=== PATIENT | male | born 1975 | race African-American/Black ===

== ENCOUNTER 2016-06-30 18:07 | Inpatient (IN) | payer BC, OTHER ==
[~2016-06-30] VITALS: Ht 177.8 cm; Wt 88.8 kg
[2016-06-30 18:28] LABS: Urine RBC None Seen /hpf (0 - 3)
[2016-06-30 18:55] LABS: Basophils # (auto) 0 uL; Basophils % (auto) 0.4 % (0.0-2.0); Eosinophils # (auto) 0.2 uL; Eosinophils % (auto) 2.4 % (0.0-7.0); Hematocrit 46.7 % (41.0-53.0); Hemoglobin 14.8 g/dL (13.5-17.5); Lymphocytes # (auto) 1.2 uL; Mean Corpuscular Hgb Conc. 31.6 g/dL (32.0-36.0); Mean Corpuscular Volume 91.7 fL (80.0-100.0); Mean Platelet Volume 8.8 fL (7.4-10.4); Monocytes # (auto) 0.6 uL; Monocytes % (auto) 6.7 % (0.0-12.0); Neutrophils # (auto) 6.6 uL; Neutrophils % (auto) 76.5 % (37.0-80.0); Platelet Count (auto) 216 10^3/uL (140-450); White Blood Cell 8.6 10^3/uL (4.4-10.8)
[2016-06-30 19:03] LABS: Urine Bilirubin Negative (Negative); Urine Blood Negative /uL (Negative); Urine Color Yellow (Yellow); Urine Glucose 1+ mg/dL (Normal); Urine Ketone Negative (Negative); Urine Nitrite Negative (Negative); Urine Squamous Epithelial Cell FEW /hpf (<5); Urine Urobilinogen Normal (Negative); Urine pH 6.5 (5.0-8.0)
[2016-06-30 19:15] LABS: Albumin 4.5 g/dL (3.4-5.0); BUN/Creatinine Ratio 6.1; Calcium 9.3 mg/dL (8.5-10.1); Potassium 3.7 mmol/L (3.5-5.1)
[2016-06-30 19:25] LABS: Bilirubin, Total 0.7 mg/dL (0.2-1.0)
[2016-06-30] MEDS ORDERED: SODIUM CHLORIDE 0.9% 500 ML IVB ONE (19:38)
[2016-06-30] MEDS ORDERED: HYDROmorphone HCL 2 MG/ML VL IV ONE (19:45)
[2016-06-30] MEDS ORDERED: ONDANSETRON HCL 4 MG/2 ML VIAL IV ONE (19:45)
[2016-06-30] MEDS ORDERED: cefTRIAXone 1GM/50ML D5W 50 ML IV ONE (20:30)
[2016-06-30 20:44] LABS: Amylase 67 U/L (25-115)
[2016-06-30] MEDS ORDERED: SODIUM CHLORIDE 0.9% 1,000 ML IV ONE (21:15)
[2016-06-30] MEDS ORDERED: ONDANSETRON HCL 4 MG/2 ML VIAL IV PRN (21:15)
[2016-06-30] MEDS: metroNIDAZOLE 500MG/100ML 100 ML IV SCH (21:35)
[2016-06-30 21:54] LABS: INR 1.11 (0.9-1.15); Prothrombin Time 11.4 sec (9.37-12.3)
[2016-06-30 22:05] VITALS: BP 156/106
[2016-07-01] VITALS (7 sets, daily range): BP systolic 130–154; BP diastolic 90–100
[2016-07-01] MEDS: HYDROmorphone HCL 2 MG/ML VL IV PRN ×5 (00:07→21:54)
[2016-07-01] MEDS: FAMOTIDINE (10MG/ML) 2ML VL IV SCH ×3 (00:08→21:38)
[2016-07-01 06:00] LABS: Basophils # (auto) 0 uL; Basophils % (auto) 0.2 % (0.0-2.0); Eosinophils # (auto) 0.2 uL; Eosinophils % (auto) 2.1 % (0.0-7.0); Hematocrit 42.5 % (41.0-53.0); Hemoglobin 13.2 g/dL (13.5-17.5); Lymphocytes # (auto) 1.2 uL; Lymphocytes % (auto) 14.5 % (10.0-50.0); Mean Corpuscular Hemoglobin 28.8 pg (28.0-32.0); Mean Corpuscular Hgb Conc. 31.1 g/dL (32.0-36.0); Mean Corpuscular Volume 92.3 fL (80.0-100.0); Monocytes # (auto) 0.6 uL; Monocytes % (auto) 7.6 % (0.0-12.0); Neutrophils % (auto) 75.6 % (37.0-80.0); Platelet Count (auto) 191 10^3/uL (140-450); Red Cell Distribution Width 14.1 % (11.6-16.0)
[2016-07-01] MEDS: metroNIDAZOLE 500MG/100ML 100 ML IV SCH ×3 (06:00→21:37)
[2016-07-01 06:19] LABS: Albumin 3.9 g/dL (3.4-5.0); BUN/Creatinine Ratio 8.2; Calcium 9.1 mg/dL (8.5-10.1)
[2016-07-01 06:22] LABS: Bilirubin, Total 0.9 mg/dL (0.2-1.0)
[2016-07-01] MEDS ORDERED: BUPIVACAINE W/ EPINEPH 0.25% INJ 50ML MDV ONE (07:03)
[2016-07-01] MEDS ORDERED: BUPIVACAINE 0.25% INJ 50ML VIAL ONE (07:03)
[2016-07-01] MEDS ORDERED: ceFAZolin 1GM VL ONE (07:03)
[2016-07-01] MEDS ORDERED: MEPERIDINE HCL (50 MG/ML) 1 ML VIAL ONE (07:18)
[2016-07-01] MEDS ORDERED: fentaNYL CITRATE 100 MCG/2 ML VL ONE (07:18)
[2016-07-01] MEDS ORDERED: MIDAZOLAM HCL 1MG/1ML-2 ML VIAL ONE (07:18)
[2016-07-01] MEDS ORDERED: PROPOFOL 10 MG/ML 20 ML IV ONE (07:28)
[2016-07-01] MEDS ORDERED: DEXAMETHASONE SOD PHOS 10MG/1ML VIAL INJ ONE (07:28)
[2016-07-01] MEDS ORDERED: ROCURONIUM 10MG/ML 10ML VIAL IV ONE (07:41)
[2016-07-01] MEDS ORDERED: ONDANSETRON HCL 4 MG/2 ML VIAL IV ONE (08:00)
[2016-07-01] MEDS ORDERED: KETOROLAC TROMETH 30 MG/ML 1ML VIAL IV ONE (08:00)
[2016-07-01] MEDS ORDERED: MORPHINE SULF INJ 2 MG/ML SYRINGE 1ML IV PRN (08:00)
[2016-07-01] MEDS ORDERED: LABETALOL HCL 5 MG/ML 4ML SYRINGE IV PRN (08:00)
[2016-07-01] MEDS ORDERED: MIDAZOLAM HCL 1MG/1ML-2 ML VIAL IV PRN (08:00)
[2016-07-01] MEDS ORDERED: hydrALAZINE HCL 20 MG/ML VL IV PRN (08:00)
[2016-07-01] MEDS ORDERED: GLYCOPYRROLATE 0.2 MG/ML 1ML VIAL ONE (08:11)
[2016-07-01] MEDS ORDERED: NEOSTIGMINE 1 MG/ML INJ (10mg/10ML VIAL) ONE (08:11)
[2016-07-01] MEDS ORDERED: KETOROLAC TROMETH 30 MG/ML 1ML VIAL ONE (08:18)
[2016-07-01] MEDS: cefTRIAXone 1GM/50ML D5W 50 ML IV SCH (10:26)
[2016-07-01] MEDS: SODIUM CHLORIDE 0.9% 1,000 ML IV SCH (14:40)
[2016-07-02] MEDS: SODIUM CHLORIDE 0.9% 1,000 ML IV SCH (03:25)
[2016-07-02 05:00] VITALS: BP 146/97
[2016-07-02] MEDS: metroNIDAZOLE 500MG/100ML 100 ML IV SCH ×2 (06:18→14:00)
[2016-07-02 06:32] LABS: Basophils # (auto) 0 uL; Basophils % (auto) 0.1 % (0.0-2.0); Eosinophils # (auto) 0 uL; Eosinophils % (auto) 0.1 % (0.0-7.0); Hematocrit 37.6 % (41.0-53.0); Hemoglobin 11.9 g/dL (13.5-17.5); Lymphocytes % (auto) 13.3 % (10.0-50.0); Mean Corpuscular Hgb Conc. 31.6 g/dL (32.0-36.0); Mean Corpuscular Volume 91.7 fL (80.0-100.0); Mean Platelet Volume 9.1 fL (7.4-10.4); Monocytes # (auto) 0.6 uL; Neutrophils # (auto) 5.9 uL; Neutrophils % (auto) 78.5 % (37.0-80.0); Platelet Count (auto) 179 10^3/uL (140-450); Red Cell Distribution Width 13.7 % (11.6-16.0); White Blood Cell 7.5 10^3/uL (4.4-10.8)
[2016-07-02] MEDS: HYDROmorphone HCL 2 MG/ML VL IV PRN (06:50)
[2016-07-02 06:53] LABS: Potassium 3.7 mmol/L (3.5-5.1)
[2016-07-02 06:57] LABS: BUN/Creatinine Ratio 10.2; Calcium 8.5 mg/dL (8.5-10.1)
[2016-07-02 08:00] VITALS: BP 150/100
[2016-07-02 09:02] VITALS: BP 150/100
[2016-07-02] MEDS: cefTRIAXone 1GM/50ML D5W 50 ML IV SCH (09:12)
[2016-07-02] MEDS: FAMOTIDINE (10MG/ML) 2ML VL IV SCH (09:13)
[2016-07-02 13:10] VITALS: BP 154/104
[2016-07-02 13:52] VITALS: BP 154/104
== END 2016-07-02 15:10 | disposition home or self-care (01) | DRG 338 ==
LOC: ER 18:12 → TELE 18:13 → WEST WING 22:08
PROVIDERS: ADMIT Family Medicine; ATTEND Internal Medicine
PROC: 0DTJ4ZZ Resection of Appendix, Percutaneous Endoscopic Approach (ICD-10-PCS; principal; 2016-07-01 07:26)
DX: K35.3 Acute appendicitis with localized peritonitis (principal); N17.0 Acute kidney failure with tubular necrosis
CPT/HCPCS: 36415; 71020; 74176; 80048; 80053; 81001; 82150; 83690; 83735; 85025; 85610; 85730; 86850; 86900; 86901; 93005; 94761; 96361; 96365; 96375; J0690; J0696; J1100; J1885; J2250; J2405; J2704; J3490